=== PATIENT | female | born 1980 | race Hispanic/Latino ===

== ENCOUNTER 2017-08-27 11:54 | Inpatient (IN) | payer MEDICAID, OTHER, SELFPAY ==
[2017-08-27 12:48] VITALS: BMI 27.6
[2017-08-27 14:17] LABS: Amnisure Internal Control QC ACCEPTABLE (ACCEPTABLE); Amnisure Test RUPTURE DETECTED (No Rupture)
[2017-08-27] MEDS ORDERED: LR / Pitocin 40 units/1000 ml 1,000 ML IV PRN (14:34)
[2017-08-27] MEDS ORDERED: Lidocaine 1% (PF) 30 ML VIAL SC PRN (14:34)
[2017-08-27] MEDS ORDERED: Promethazine HCl 25 MG/ML VIAL IM PRN ×2 (14:35→20:51)
[2017-08-27] MEDS ORDERED: Ondansetron HCl/PF 4 MG/2 ML Vial IVP PRN ×3 (14:35→20:51)
[2017-08-27] MEDS: Lactated Ringer's 1,000 ML IV SCH ×4 (14:50→22:20)
[2017-08-27 15:18] LABS: Hemoglobin 13.1 g/dL (12.0-16.0); Mean Corpuscular HGB CONC 35.3 g/dL (32.0-36.0); Mean Corpuscular Hemoglobin 32.2 pg (27.0-31.0); Mean Corpuscular Volume 91.3 fl (81.0-99.0); Mean Platelet Volume 8.4 fL (7.4-10.4); Platelet Count 170 thou/uL (130-400); RBC Distribution Width 12.7 % (11.5-14.5); Red Blood Cell (RBC) Count 4.06 mill/uL (4.20-5.40); White Blood Cell (WBC) Count 9.3 thou/uL (4.8-10.8)
[2017-08-27] MEDS ORDERED: DISCONTINUE ALL PREVIOUS NARCOTICS FS SCH (15:30)
[2017-08-27] MEDS ORDERED: Bupivacaine 0.5% 20 ML, fentaNYL Citrate/PF 400 MCG in Sodium Chloride 0.9% 72 ML EPIDURAL SCH (15:30)
--- NOTE | 2017-08-27 15:33 | PDOC.LDHP ---
Labor and Delivery H&P Chief complaint: contractions HPI: Patient comes into L&D for contractions about 5 min apart which started at 0400 this morning. She says she has had a minimal clear secretions as well as minimal bleeding. She is feeling the contractions. No dysuria. No headache, N/V , sob, or swelling. She feels baby moving at least 3x per hour. Current gestational age (weeks): 40 Dating criteria: first trimester ultrasound Grav: 6 Para: 4 OB History Details: ,1,1,4 RODDY: 08/27/17 3 vaginal deliveries, largest being 10lbs Follows at [facility] with Dr. Green Last delivery was a C/S in July 2016 secondary to vasa previa at 36 wks Patient was referred to [facility] for evaluation of low-lying placenta, no changes to management per [facility] notes Current complications: none Abnormal US findings: No (low-lying posterior placenta) Current medications: pre-iris vitamins Previous surgical history: low tranverse CS Social history: none - Physical Exam Vital signs reviewed and normal: yes General: NAD Heart: RRR Lungs: nonlabored breathing Abdomen: NTTP Extremeties: normal range of motion FHT: category 1, variability present Orcutt contractions every: 2-6 min - Vaginal Exam cm dilated: 3 Effacement: 75% Station: -2 - OB Labs Blood type: A RH: positive Antibody Screen: negative HIV: negative RPR: negative HEPSAg: negative 1 hour GCT: positive 3 hour GTT: negative GBS: negative Urine drug screen: negative Rubella: non-immune - Assessment L&D Assessment: term patient in labor - Plan Plan: admit to L&D -: # Tolac - discussed risks/benefits with patient - patient elects for TOLAC - 3 cm at 1300, 7cm at 1700 melinda every 2-3 min - US confirms low lying placenta w/ no vasa previa - Type and Screen - GBS negative per yellow card - NPO except ice chips - Continuous monitoring - Anesthesia consulted for epidural - anticipate normal vaginal delivery <Fede Morris - Last Filed: 08/27/17 15:31> <Linda Lauren - Last Filed: 08/28/17 05:42> Allergies/Adverse Reactions: Allergies Allergy/AdvReac Type Severity Reaction Status Date / Time No Known Allergies Allergy Verified 07/16/16 19:54 Attending Addendum - Attending Addendum Date/Time: 08/28/17 0541 I personally evaluated the patient and discussed the management with Dr. Morris. I agree with the History, Examination, Assessment and Plan documented above with any addition or exceptions noted below. See my event note from 08/27 at 1536 for my complete h&P. <Linda Lauren - Last Filed: 08/28/17 05:42>
--- NOTE | 2017-08-27 15:45 | PDOC.EVN ---
Event Note - Event Note Event Note: Ms. Vazquez is a 37 y/o at 40 weeks gestation who presents with painful ctx. She has h/o 3 and last was a for vasa previa and 3rd trimester bleeding requiring 1` LTCS in July 2016. She has been seen as outpatient by dump truck driver off [place] and discussed r/b/a for TOLAC with short interval and recommended as ok to proceed. Also had low-lying placenta initially that resolved by today's ultrasound to fundal placenta. Cervix: initially 3/80/-2, repeat after ~1 hour was 7/90/-2 bulging bag. Ctx: q 2-3 minutes, painful FHT: baseline 150s, mod irma, + accels, no decels 1) IUP at 40 weeks who desires TOLAC- risks of uterine rupture, bleeding, and catastrophic distress discussed in detail with patient. Dr. Morris spoke in English and hotel services sales representative phone used earlier to ensure understanding. She gives informed consent for TOLAC. Good candidate as 75% liklihood of successful with calculator and good cervical change in a short period of time. Short interval, but double layer closure on LTCS. Sono today shows ~3500 gm . Patient desires epidural and will place as soon as labs return. 2) GBS neg.
[2017-08-27 15:48] LABS: HBSAg Index 0.16 S/CO (0-0.99); Hep B Surf Ag Non-Reactive S/CO (NonReactive)
[2017-08-27 15:59] LABS: Syphilis Antibody Nonreactive (Nonreactive); Syphilis Antibody Index 0.05 S/CO (<1.00 Non-Reactive)
--- NOTE | 2017-08-27 16:12 | ULT ---
LIMITED OBSTETRICAL ULTRASOUND: 08/27/2017 HISTORY: Evaluate placental location. History of placenta previa. TECHNIQUE: Multiplanar tijerina-scale sonographic imaging of the gravid uterus obtained. FINDINGS: A single intrauterine gestation is present, demonstrating a vertex presentation. The placenta is loc ated in the anterior fundus, with no evidence for placenta previa or abruption. Amniotic fluid index is approximately 10 cm. heart rate is 144 beats per minute. Bilateral hydroceles are incidentally noted. BIOMETRY: BPD: 9.4 cm (38 weeks 1 day) HC: 34.7 cm (40 weeks 1 day) AC: 34.7 cm (38 weeks 4 days) FL; 7.7 cm (39 weeks 2 days) AVERAGE BASED ON ULTRASOUND: 39 weeks 0 days. ESTIMATED WEIGHT: 3615 g, plus or minus 535 g. IMPRESSION: Single intrauterine gestation, as above. No evidence for placenta previa or abruption. POS: [facility]
[2017-08-27] MEDS ORDERED: CEFAZOLIN/Water 2 GM/20 ML SYRINGE ONE (16:40)
[2017-08-27] MEDS ORDERED: Bicitra 30 ML UDCUP ONE (16:40)
[2017-08-27] MEDS ORDERED: Morphine PF 1 MG/ML SYR ONE (17:21)
[2017-08-27 17:25] LABS: Actual Bicarbonate (HCO3a) 23.9 mEq/L (22-26); Base Excess (BEa) -3.5 mEq/L (0 (+/-) 2.5)
--- NOTE | 2017-08-27 17:34 | PDOC.EVN ---
Event Note - Event Note Event Note: Patient underwent epidural placement but was still having significant pain. I performed AROM with MSAF noted. Immediately after, heart tones were in the 70-90s over the next 5 minutes with ultimate recovery to baseline. She continued to have deep variable decels with each contraction. We discussed options of continued trial of labor vs repeat LTCS. Patient and agreed to proceed with . While we waited for anesthesia, we rechecked her cervix and she had an anterior lip and was 0 station. We attempted to push past the lip and Dr. Hassan was consulted for consideration of high outlet operative vaginal delivery. Patient was unable to push past this lip and was too high for operative vag delivery. When anesthesia arrived we took to OR for urgent LTCS. Heart tones were back to baseline at the time of the start of the case. Repeat LTCS via pfannensteil under general anesthesia. No obvious window or defect identified. low transverse hysterotomy performed. MSAF noted again. delivered and was vigorous and taken to warmer. Cord segment sent. Placenta sent to path. Weight 9# 3 oz and 8/9. Dr. Alcantara took over at the repair of the hysterotomy. See Dr. Rizzo dictation and Dr. Marr note for further details.
[2017-08-27] MEDS ORDERED: Fentanyl 100 MCG/2 ML VIAL ONE ×2 (17:39→20:15)
[2017-08-27] MEDS ORDERED: ePHEDrine/0.9% NaCl/PF SYRINGE 50 mg/10 ml ONE (17:53)
[2017-08-27] MEDS ORDERED: Oxytocin 10 UNITS/ML VIAL ONE ×2 (18:24→18:47)
[2017-08-27 18:31] LABS: Platelet Count 155 thou/uL (130-400)
[2017-08-27 18:33] LABS: Fibrinogen 427 mg/dL (253-463)
[2017-08-27 18:34] LABS: D-Dimer Test 3.98 *mcg/mL (0.27-0.43); INR-International Normal Ratio 1.2; PTT 32.1 SEC (22.9-36.1); Prothrombin Time 15.2 SEC (12.0-14.7)
[2017-08-27 18:53] LABS: FSP-Qualitative ABNORMAL (Normal); FSP-Semiquantitative >=20 & <40 mcg/mL (Less than 5)
[2017-08-27] MEDS ORDERED: CEFAZOLIN 1 GM VIAL ONE ×2 (19:23)
[2017-08-27] MEDS ORDERED: Azithromycin 500 MG in Sodium Chloride 0.9% 250 ML 250 ML IVPB SCH (19:30)
[2017-08-27] MEDS ORDERED: Glycopyrrolate 0.2 MG/ML 5 ML SYRINGE ONE (19:30)
[2017-08-27] MEDS ORDERED: NIFEdipine 10 MG CAP ONE (19:30)
[2017-08-27] MEDS ORDERED: Meperidine HCl/PF 25 MG/ML VIAL SLOW IVP PRN (20:13)
[2017-08-27] MEDS ORDERED: HYDROmorphone 2 MG/ML VIAL SLOW IVP PRN (20:13)
[2017-08-27] MEDS: Fentanyl 100 MCG/2 ML VIAL SLOW IVP PRN ×2 (20:20→20:50)
[2017-08-27] MEDS ORDERED: Fentanyl 5000 MCG/250 ML CADD IVPB PRN (20:51)
[2017-08-27] MEDS ORDERED: diphenhydrAMINE 25 MG CAP PO PRN (20:51)
[2017-08-27] MEDS ORDERED: diphenhydrAMINE 50 MG/ML VIAL IM PRN (20:51)
[2017-08-27] MEDS ORDERED: Naloxone HCl 0.4 mg/ml Vial IV PRN (20:51)
[2017-08-27] MEDS ORDERED: diphenhydrAMINE 50 MG/ML VIAL IVP PRN (20:51)
[2017-08-27] MEDS ORDERED: Zolpidem Tartrate 5 MG TAB PO PRN (20:51)
[2017-08-27] MEDS ORDERED: Communication Order-Pharmacy FS SCH (21:00)
[2017-08-27] MEDS ORDERED: fentaNYL Citrate/PF 2,000 MCG in Sodium Chloride 0.9% 60 ML IV PRN (21:15)
--- NOTE | 2017-08-27 21:19 | PDOC.EVN ---
Event Note - Event Note Event Note: Called by L&D at 4:50 about urgent C/S of TOLAC patient for non-reassuring heart tones, as I was Dr. Lauren replacement at 5 PM. I arrived as hysterotomy was being made by Dr. Rizzo under Dr. Lauren visualization. Possible uterine artery laceration was noted with a small extension on the right side which was closed with a locking stitch with good hemostasis as documented by Dr. Lauren. I replaced her as plastic tubing insulation supervisor at the mid-point of they hysterotomy repair. On inspection of the left apex, a small extension was noted. Extension was repaired and the hysterotomy closed in usual fashion with good hemostasis. A second embricating layer was placed in the horizontal fashion with good hemostasis. Uterus, tubes, and broad ligaments were inspected in front and back and found to be without rupture or hematoma. A small amount of bleeding was noted below the left apex of the hysterotomy but a source was not able to be identified. The bleeding was was identified as coming from the vesicouterine pouch with an entrance behind the bladder palpated , but specific source of bleeding was unable to be identified. At that time Dr. Hassan was called into the OR for assistance. The embricating layer was removed along with the left portion of the hysterotomy. The vesicouterine pouch was opened further, revealing more brisk bleeding without an obvious source. At this point, anesthesia noted that the patient was becoming tachycardic. 1500 mL of blood was identified. 2 packs of blood were called for , with transfusion of the first unit initiated on arrival. Dr. Webber was called by Dr. Hassan. The hysterotomy was from the vesicouterine space and closed with good hemostasis of the left apex. At this point, Dr. Webber arrived and assumed care for the case with Dr. Hassan. Please see Dr. Hassan's documentation for further details.
--- NOTE | 2017-08-27 22:24 | OP-2 ---
DATE OF SERVICE: 08/27/2017 RESIDENT SURGEON: Mendoza Rizzo MD DIRECTOR OF EXHIBIT DEVELOPMENT SURGEON: Fede Morris MD ATTENDING SURGEONS: Linda Lauren MD and Bridgette Alcantara DO CONSULTING SURGEONS: Cinthya Whalen DO and Bridgette Hassan MD PROCEDURE: Emergent repeat low transverse section. PREOPERATIVE DIAGNOSES: 1. Nonreassuring heart tones with bradycardia into the 70s recovered to 130s prior to induction of anesthesia. 2. Failed trial of labor after . POSTOPERATIVE DIAGNOSES: 1. Nonreassuring heart tones with bradycardia into the 70s recovered to 130s prior to induction of anesthesia. 2. Bilateral uterine extensions with right uterine artery laceration, status post repair with a 2 O'[place]ield stitches. 3. Severe intraoperative hemorrhage. 4. Suspected early disseminated intravascular coagulation - resolved. 5. Failed trial of labor after ANESTHESIA: General. INDICATIONS: The patient is a 37-year-old -1-1-4 at 40 weeks gestation who presented with painful contractions. She had a history of 3 prior vaginal deliveries and a approximately 13 months ago indicated for third trimester bleeding due to vasa previa. TOLAC was attempted and failed due to nonreassuring heart tones, maternal exhaustion, and maternal discomfort. Emergency was called for nonreassuring heart tones. PROCEDURE IN DETAIL: After risks, benefits, and alternatives were explained, the patient provided informed consent. Preoperative antibiotics of cefazolin 2 grams IV were given. The patient was taken to the operating room at 1702 hours and placed in the supine position with left lateral tilt. She was prepped and draped in the usual sterile fashion. At this time, general anesthesia was achieved and endotracheal intubation was performed by Anesthesiology. Pfannenstiel incision was made at 1708 hours with a scalpel and carried down to level of the fascia which was nicked sharply. The fascia was cut and extended bilaterally with Vazquez scissors. The inferior and superior fascia were elevated with Chey clamps and the rectus muscles were sharply and bluntly dissected free. The recti were divided digitally and retracted manually. Peritoneum was entered bluntly and retracted manually. Bladder blade was placed. Bladder flap was created with Metzenbaum scissors. Low transverse score was made with a scalpel and the uterus was entered in the midline. A thick meconium-stained fluid was noted. Hysterotomy was extended manually. The infant was noted to be vertex and delivered easily with fundal pressure. The head of the infant was noted to be at the pelvic inlet. Mouth and nares were bulb suctioned. Cord was cut and clamped and grossly normal male who was handed to the awaiting neonatology team. Cord gas segment was taken due to the nonreassuring heart tones. Cord gas pH at time of delivery was 7.28. Cord blood was then obtained. The placenta was delivered with fundal massage. The uterus was then externalized. At this time, bilateral hysterotomy extensions were noted. Pulsatile bleeding was noted on the right edge of the hysterotomy. This resolve with placement of a ring forceps. The apex and bleeding artery were incorporated into the hysterotomy closure. It was then closed in the running- locking fashion using #1 Vicryl. An imbricating layer was then made using a second #1 Vicryl in the running-nonlocking fashion. The uterus was anteverted and pouch of Satnam was noted to be free of clots. The uterus was retroverted and the hysterotomy was inspected again. It was noted to be hemostatic at this time. The uterus was then internalized and the hysterotomy was visualized again. At this time, bleeding was noted along the left edge of the hysterotomy. Digital exploration of the hysterotomy revealed potential space within the imbricated layer. At this time, Dr. Hassan from [facility] was called in to assist. Ten units of intrauterine pitocin were given at this time. The left apex of the hysterotomy was grasped with an Allis clamp and two figure-of-8 sutures were placed. When this did not control the bleeding , Dr. Hassan called for assistance from Dr. Whalen. While waiting for Dr. Whalen to arrive, the imbricating layer and hysterotomy were reopened. At the time, Dr. Whalen arrived, the imbricating layer had been taken down and the hysterotomy partially opened. The lower segment was visualized, but no obvious source of bleeding could be found. Dr. Whalen and Dr. Hassan further inspected the right aspect of the hysterotomy and found pulsatile bleeding once the initial hysterotomy closure was taken down. It was believe that this was the lacerated right uterine artery. At this time, the massive transfusion protocol was initiated. The patient already had 2 units of packed red blood cells ordered, but was experiencing hypotension, tachycardia, and hypothermia. The right uterine artery was ligated using 2 O'[place]ield stitches. Hysterotomy was then reclosed using 0 Monocryl in the running-locking fashion. One figure-of- eight stitch was needed along the lower uterine segment to control bleeding. The hysterotomy was noted to be hemostatic along the incision, but several areas of venous bleeding were noted along the lower segment. Results from the coagulopathy panel had returned and were concerning for early DIC. Bovie cautery and FloSeal were used to control the areas of venous bleeding. Uterus was then re-internalized and the hysterotomy was inspected. It was noted to be hemostatic at this time. The fascial layer was closed using 0 PDS in the running-nonlocking fashion. Subcutaneous skin was closed using #2 plain gut in the running-nonlocking fashion. Skin was reapproximated with morteza. Vital signs at the end of the procedure were stable. The patient was taken to the recovery room in stable condition. Sponge, needle, and instrument counts were correct x3. ESTIMATED BLOOD LOSS: 3000 mL. BLOOD PRODUCTS GIVEN INTRAOPERATIVELY: Four units of packed red blood cells, 2 units of fresh-frozen plasma, and one 6-pack of platelets. FLUID DURING PROCEDURE: 3 liters crystalloid. ADDITIONAL MEDICATIONS GIVEN DURING PROCEDURE: Patient received 120 units of IV Pitocin and 10 units intrauterine Pitocin. URINE OUTPUT: 800 mL. Prior to the start of the procedure, trace amount of blood was noted in the Rodriguez bag. Urine in the Rodriguez tubing throughout the entire procedure was clear. There was no concern for injury to the bladder. FINDINGS: Grossly normal male infant with Apgars of 8 and 9 at 1 and 5 minutes respectively. Grossly normal placenta with three-vessel cord, sent to pathology. DRAINS: Rodriguez to gravity with clear urine draining. For additional details, see doctors Leonidas', Quinton's, Mo's, and Marlee's notes for their specific contributions to this procedure. [facility] HOSPITALShannon
[2017-08-28] MEDS ORDERED: HYDROcodone/Acetaminophen 10/325 mg Tablet PO PRN (00:30)
[2017-08-28] MEDS ORDERED: Lidocaine 2% MPF 10 ML AMP (For Epidural Use) ONE (00:30)
[2017-08-28] MEDS ORDERED: Morphine PF 1 MG/ML SYR IVP PRN (00:30)
[2017-08-28] MEDS: Benzonatate 100 MG CAP PO PRN ×3 (01:14→21:55)
[2017-08-28 01:42] LABS: Hemoglobin 11.4 g/dL (12.0-16.0); Mean Corpuscular HGB CONC 35.5 g/dL (32.0-36.0); Mean Corpuscular Hemoglobin 31.4 pg (27.0-31.0); Mean Corpuscular Volume 88.4 fl (81.0-99.0); Mean Platelet Volume 7.5 fL (7.4-10.4); Platelet Count 147 thou/uL (130-400); Red Blood Cell (RBC) Count 3.63 mill/uL (4.20-5.40); White Blood Cell (WBC) Count 12.3 thou/uL (4.8-10.8)
--- NOTE | 2017-08-28 01:56 | PDOC.EVN ---
Event Note - Event Note Event Note: Post Operative Note S: Patient states she is sore. She is resting in her bed. O: Vitals: Mild tachycardia to 105. otherwise WNL Gen: NAD CV: RRR, no murmurs Resp: CTA-bilaterally Abdomen: Tender to palpation. Surgical site bandaged Extremity: No edema or erythema A/P: 1. TOLAC converted to , delivered - Continue Routine care - H & H 11.4 & 32.1 2. Hemorrhage - s/p transfusion - H & H 11.4 & 32.1 - Continue to monitor for signs and symptoms of bleeding Disposition: Stable, will continue current plan of care.
[2017-08-28 05:23] LABS: Hemoglobin 11.5 g/dL (12.0-16.0); Mean Corpuscular HGB CONC 35.2 g/dL (32.0-36.0); Mean Corpuscular Hemoglobin 31.1 pg (27.0-31.0); Mean Corpuscular Volume 88.5 fl (81.0-99.0); Mean Platelet Volume 7.4 fL (7.4-10.4); Platelet Count 145 thou/uL (130-400); Red Blood Cell (RBC) Count 3.69 mill/uL (4.20-5.40); White Blood Cell (WBC) Count 11.6 thou/uL (4.8-10.8)
[2017-08-28 05:37] LABS: INR-International Normal Ratio 1.1; Prothrombin Time 14.6 SEC (12.0-14.7)
[2017-08-28] MEDS: Lactated Ringer's 1,000 ML IV SCH ×3 (05:42→22:56)
--- NOTE | 2017-08-28 06:18 | PDOC.PP ---
Post Progress Note Post Day #: 1 Subjective: Doing well. Complains only of a sore throat and dry cough. No events overnight. Bleeding wnl. Vital Signs (12 hours) Temp Pulse Resp BP 08/28/17 04:00 98.6 F 73 18 08/28/17 02:15 98.3 F 77 18 128/67 08/28/17 01:15 98.5 F 72 18 116/61 08/28/17 00:15 98.1 F 77 20 119/62 08/27/17 20:00 97.7 F 105 H 20 Weight Weight 146 lb - Physical Examination General: NAD Respiratory: non-labored breathing Abdominal: lochia (normal), no distention, appropriately TTP (soft, no guarding or rebound.) Fundus firm & at: U-2 Skin: CS incision dry & intact, no rash Neurological: no gross focal deficits Psychiatric: A&Ox3, normal affect Result Diagrams: 08/28/17 05:10 Additional Labs: Post Labs Blood Type A POSITIVE 08/27/17 15:11 Hep Bs Antigen Non-Reactive S/CO (NonReactive) 08/27/17 15:11 (1) hemorrhage Code(s): O72.1 - OTHER IMMEDIATE HEMORRHAGE Status: Acute (2) Transfusion of blood during current hospitalization Code(s): [id number] - Status: Acute (3) Failed trial of labor following previous , delivered Code(s): O66.41 - FAILED ATTEMPT VAGINAL AFTER PREVIOUS DEL Status: Acute - Assessment/Plan H/H pending for this morning. Stable exam. Continue to monitor.
[2017-08-28] MEDS: Ferrous Sulfate 325 MG TAB PO SCH ×3 (07:44→17:26)
--- NOTE | 2017-08-28 08:14 | PDOC.PP ---
Post Progress Note Post Day #: 1 Subjective: 37 yo F s/p repeat c section after failed TOLAC complicated by PPH with EBL of 3L. Pt got 4u PRBC, 2 FFP, 1 Plt. Today pt states that she if generally feeling well, however complains of abd pain with motion and sore throat. She denies symptoms of anemia/hypovolemia such as dizziness, n/v, headache, feeling weak. Otherwise pt is doing well. She denies breast pain/tenderness, chest pain/sob, fever. She has not had a bm and is not passing gas. PO intake tolerated: yes Flatus: no Ambulation: no Vital Signs (12 hours) Temp Pulse Resp BP 08/28/17 04:00 98.6 F 73 18 08/28/17 02:15 98.3 F 77 18 128/67 08/28/17 01:15 98.5 F 72 18 116/61 08/28/17 00:15 98.1 F 77 20 119/62 Weight Weight 66.224 kg - Physical Examination General: NAD Cardiovascular: no m/r/g, RRR Respiratory: clear to auscultation bilaterally Abdominal: + bowel sounds, no distention, appropriately TTP Fundus firm & at: Umbilicus Extremities: negative homans (B) Skin: CS incision dry & intact Neurological: no gross focal deficits Psychiatric: A&Ox3, normal affect Result Diagrams: 08/28/17 05:10 Additional Labs: Post Labs Blood Type A POSITIVE 08/27/17 15:11 Hep Bs Antigen Non-Reactive S/CO (NonReactive) 08/27/17 15:11 (1) Failed trial of labor following previous , delivered Code(s): O66.41 - FAILED ATTEMPT VAGINAL AFTER PREVIOUS DEL Status: Acute (2) hemorrhage Code(s): O72.1 - OTHER IMMEDIATE HEMORRHAGE Status: Acute (3) Transfusion of blood during current hospitalization Code(s): [id number] - Status: Acute - Assessment/Plan Repeat c section after failed TOLAC, delivered - Doing well this morning, routine post op care - [place]/Motrin for pain control - encourage ambulation today - [place] to bottle feed only PPH - s/p massive transfusion protocol. 4u PRBC, 2 FFP, 1 plt - hb stable, vitals normal - No blood per vagina - monitor CBC in am Dispo: Pt stable and doing well. Continue to monitor volume status, continue routine post care. <Kyree Willis - Last Filed: 08/28/17 08:03> Vital Signs (12 hours) Temp Pulse Resp BP 08/28/17 17:42 98.7 F 81 18 110/60 08/28/17 16:00 98.8 F 80 18 08/28/17 12:45 98.8 F 80 18 107/58 L 08/28/17 12:00 98.8 F 80 18 Weight Weight 66.224 kg Result Diagrams: 08/28/17 05:10 Additional Labs: Post Labs Blood Type A POSITIVE 08/27/17 15:11 Hep Bs Antigen Non-Reactive S/CO (NonReactive) 08/27/17 15:11 <Karla Mirza - Last Filed: 08/28/17 20:40> Attending Addendum - Attending Addendum Date/Time: 08/28/172033 I personally evaluated the patient and discussed the management with Dr. Willis and Dr. Wallace I agree with the History, Examination, Assessment and Plan documented above with any addition or exceptions noted below. 37 yo female s/p RLTCS 2/2 NRFHT complicated by PPH Patient doing well today. Reports fatigue. Trouble sleeping last night. Denies CP, SOB, and palpitations. No ambulating yet. Pain to abdomen but controlled with medications. Lochia appropriate. VS reviewed. Labs reviewed. NAD, fatigue appearing. RRR. No murmurs. CTA bilaterally. Abdomen soft and mildly distended. BS present. Incision with morteza. Healing. Uterus firm below umbilicus. Tender to palpation to abdomen but appropriate. 1. PPD/POD#1: Doing well. Continue routine pp care. 2. s/p RLTCS: Start bowel prep due to narcotics. Monitor BM and pain management. Encourage ambulation. 3. PPH s/p massive transfusion: H&H stable. Coags stable. Monitor for symptoms. 4. Bottle feeding 5. Contraception: To discuss tomorrow. Continue routine care. Likely d/c in 72 hours. ABrayMD <Karla Mirza - Last Filed: 08/28/17 20:40>
[2017-08-28] MEDS: Cepastat Lozenges 1 LOZ PO PRN ×5 (08:29→19:44)
[2017-08-28] MEDS ORDERED: Adacel (T-DAP) 0.5 ML VIAL IM ONE (09:00)
--- NOTE | 2017-08-28 09:38 | ADD-OP ---
ADDENDUM DATE OF PROCEDURE: 08/27/2017 I was called to the operating room for an intraoperative consult by Dr. Bridgette Alcantara of the [facility]. The patient had undergone an emergent repeat low transverse for heart rate abnormality during a trial of labor. Following delivery, the hysterotomy was reported to have bilateral extensions, which were repaired by Dr. Linda Lauren and Dr. Alcantara. After reapproximation of the hysterotomy, they noted welling up of fresh blood in the left gutter and called me for consultation. At the time of my consultation, the patient was noted to have approximately 3881-4658 mL of blood loss. Replacement blood products were called for. I examined the hysterotomy and noted a large space at the left apex extending down inferiorly. I opened the hysterotomy to better evaluate and the patient continued to bleed heavily from inferior to the hysterotomy. At that time, I called Dr. Cinthya Whalen to come in and assist me in case we would need to perform a hysterectomy. We opened the inferior serosa and bladder flap and found that there was a large arterial bleed from the right uterine artery. At that time, the massive transfusion protocol was activated. We then placed an [place] stitch around the bleeding uterine artery with good hemostasis. The hysterotomy was then closed in a running locked fashion with #1 Monocryl. There were multiple areas of bleeding inferior to the incision and this area was incorporated in an imbricating stitch. There were multiple other areas of oozing. FloSeal was then applied to these areas with good hemostasis. The uterus was returned to the abdomen. The hysterotomy was observed and good hemostasis was noted. The fascia was closed in a running fashion with 0 PDS. The subcutaneous fat was reapproximated with 2-0 plain gut. The skin was closed with morteza and a pressure dressing was applied. Sponge, lap, and needle counts were correct x2 and the patient was taken to the recovery room in stable condition. The patient received 4 units of packed red blood cells, 2 units of FFP, and one six-pack of platelets intraoperatively. Please see the note by Dr. Linda Lauren and Dr. Alcantara for remaining details. Final EBL was approximately 3000 mL. MTDD
[2017-08-28] MEDS ORDERED: HYDROcodone/Acetaminophen 5/325 mg Tablet PO PRN ×2 (12:10)
[2017-08-28] MEDS ORDERED: Fentanyl 100 MCG/2 ML VIAL SLOW IVP PRN (12:11)
[2017-08-28] MEDS: Ibuprofen 800 MG TAB PO PRN ×2 (14:21→21:55)
[2017-08-28] MEDS: Simethicone Chewable 80 MG TAB PO PRN (21:54)
[2017-08-29 05:37] LABS: #Eosinphils 0.1 thou/uL (0.0-0.7); #Lymphocytes 1.9 thou/uL (1.20-3.40); #Monocytes 0.6 thou/uL (0.11-0.59); #Neutrophils 10.9 thou/uL (1.40-6.50); %Basophils 0.1 % (0.0-1.0); %Eosinophils 0.8 % (0.0-10.0); %Lymphocytes 14.1 % (21.0-51.0); %Monocytes 4.1 % (0.0-10.0); Hemoglobin 9.9 g/dL (12.0-16.0); Mean Corpuscular HGB CONC 34.3 g/dL (32.0-36.0); Mean Corpuscular Hemoglobin 30.6 pg (27.0-31.0); Mean Corpuscular Volume 89.4 fl (81.0-99.0); Mean Platelet Volume 7.1 fL (7.4-10.4); Platelet Count 152 thou/uL (130-400); RBC Distribution Width 13.1 % (11.5-14.5); Red Blood Cell (RBC) Count 3.23 mill/uL (4.20-5.40); White Blood Cell (WBC) Count 13.5 thou/uL (4.8-10.8)
[2017-08-29] MEDS: Ibuprofen 800 MG TAB PO PRN (06:08)
[2017-08-29] MEDS: Simethicone Chewable 80 MG TAB PO PRN ×2 (06:09→13:24)
--- NOTE | 2017-08-29 08:08 | PDOC.PP ---
Post Progress Note Post Day #: 2 Subjective: 37 yo s/p repeat c section following failed TOLAC complicated by PPH of 3L and s/p 4u PRBC, 2 FFP, 1 plt. Pt states that her pain is still significant, but improved. She denies fever/chills, nausea, SOB, chest pain. She is passing gas, ambulating, and urinating without problem. There were no acute events over night PO intake tolerated: yes Flatus: yes Ambulation: yes Vital Signs (12 hours) Temp Pulse Resp BP Pulse Ox 08/29/17 04:10 98.8 F 64 16 130/64 96 08/29/17 00:00 98.1 F 76 16 107/57 L 93 L Weight Weight 66.224 kg - Physical Examination General: NAD Cardiovascular: no m/r/g, RRR Respiratory: clear to auscultation bilaterally, non-labored breathing Abdominal: + bowel sounds, lochia (scant bleeding) Deviation from normal: Abdomen is quite tender in LLQ Fundus firm & at: umbilicus Extremities: negative homans (B) Skin: no rash Deviation from normal: Incision well approximated with clear drainage from the R third Neurological: no gross focal deficits Psychiatric: A&Ox3, normal affect Result Diagrams: 08/29/17 05:04 Additional Labs: Post Labs Blood Type A POSITIVE 08/27/17 15:11 Hep Bs Antigen Non-Reactive S/CO (NonReactive) 08/27/17 15:11 (1) Failed trial of labor following previous , delivered Code(s): O66.41 - FAILED ATTEMPT VAGINAL AFTER PREVIOUS DEL Status: Acute (2) hemorrhage Code(s): O72.1 - OTHER IMMEDIATE HEMORRHAGE Status: Acute (3) Transfusion of blood during current hospitalization Code(s): ABL0208 - Status: Acute - Assessment/Plan Repeat c section after failed TOLAC, delivered - Doing well this morning, routine post op care - [place]/Motrin for pain control. Will schedule motrin today for better control - Drainage from wound appears to be serosanguinous and not purulent. Pts vital signs are all WNL and elevated WBC is to be expected post surgery w/ transfusion. Continue to monitor white count and vitals - continue frequent ambulation PPH - s/p massive transfusion protocol. 4u PRBC, 2 FFP, 1 plt - hb dropped to 9.9 today. Pt does not appear to be actively bleeding. Vitals are normal. - No blood per vagina - monitor CBC in am Dispo: Pt stable. Continue to monitor volume status, currently low concern for continued bleeding or infection. Continue routine post care. <Kyree Willis - Last Filed: 08/29/17 12:06> Vital Signs (12 hours) Temp Pulse Resp BP Pulse Ox 08/29/17 08:00 99.2 F 73 16 125/61 95 08/29/17 04:10 98.8 F 64 16 130/64 96 Weight Weight 66.224 kg Result Diagrams: 08/29/17 05:04 Additional Labs: Post Labs Blood Type A POSITIVE 08/27/17 15:11 Hep Bs Antigen Non-Reactive S/CO (NonReactive) 08/27/17 15:11 <Celestine Willams - Last Filed: 08/29/17 12:11> Attending Addendum - Attending Addendum Date/Time: 08/29/17 1209 I personally evaluated the patient and discussed the management with Dr. Willis. I agree with the History, Examination, Assessment and Plan documented above with any addition or exceptions noted below. Wound is clean dry adn intact without surrounding edema or erythema. Fundus at umbilicus. Abdomen is soft with only focal mild tenderness of the uterus itself. No rebound. <Celestine Willams - Last Filed: 08/29/17 12:11>
[2017-08-29] MEDS: Ibuprofen 800 MG TAB PO SCH ×2 (09:00→17:33)
[2017-08-29] MEDS: Cepastat Lozenges 1 LOZ PO PRN (09:04)
[2017-08-29] MEDS: Ferrous Sulfate 325 MG TAB PO SCH ×2 (09:04→17:32)
[2017-08-29] MEDS ORDERED: Docusate 100 MG CAP PO PRN (09:45)
[2017-08-29 21:09] VITALS: TEMP 99.1
[2017-08-30] MEDS: Ibuprofen 800 MG TAB PO SCH ×2 (00:47→07:49)
[2017-08-30 06:01] LABS: #Eosinphils 0.2 thou/uL (0.0-0.7); #Lymphocytes 2.2 thou/uL (1.20-3.40); #Monocytes 0.5 thou/uL (0.11-0.59); #Neutrophils 7.1 thou/uL (1.40-6.50); %Basophils 0.2 % (0.0-1.0); %Lymphocytes 21.9 % (21.0-51.0); %Monocytes 4.8 % (0.0-10.0); %Neutrophils 71.2 % (42.0-75.0); Hemoglobin 9.8 g/dL (12.0-16.0); Mean Corpuscular HGB CONC 34.1 g/dL (32.0-36.0); Mean Corpuscular Hemoglobin 30.6 pg (27.0-31.0); Mean Corpuscular Volume 89.5 fl (81.0-99.0); Mean Platelet Volume 7.2 fL (7.4-10.4); Platelet Count 181 thou/uL (130-400); RBC Distribution Width 12.9 % (11.5-14.5)
[2017-08-30] MEDS: Ferrous Sulfate 325 MG TAB PO SCH (07:49)
[2017-08-30 08:11] VITALS: BP 125/74
--- NOTE | 2017-08-30 08:12 | PDOC.PP ---
Post Progress Note Post Day #: 3 Subjective: 37 yo s/p repeat c section following failed TOLAC complicated by PPH of 3L and s/p 4u PRBC, 2 FFP, 1 plt. Today states that she is in very little pain. She denies dizziness, weakness, SOB, chest pain, difficulty with ambulation, or fever. She has very little vaginal bleeding, is voiding without problem, and had a BM yesterday. PO intake tolerated: yes Flatus: yes Ambulation: yes Vital Signs (12 hours) Temp Pulse Resp BP Pulse Ox 08/30/17 08:00 99.1 F 73 18 08/30/17 07:45 98 F 66 18 125/74 99 Weight Weight 66.224 kg - Physical Examination General: NAD Cardiovascular: no m/r/g, RRR Respiratory: clear to auscultation bilaterally Abdominal: + bowel sounds, no distention, appropriately TTP Extremities: negative homans (B) Skin: CS incision dry & intact Neurological: no gross focal deficits Psychiatric: A&Ox3 Result Diagrams: 08/30/17 05:14 Additional Labs: Post Labs Blood Type A POSITIVE 08/27/17 15:11 Hep Bs Antigen Non-Reactive S/CO (NonReactive) 08/27/17 15:11 (1) Failed trial of labor following previous , delivered Code(s): O66.41 - FAILED ATTEMPT VAGINAL AFTER PREVIOUS DEL Status: Acute (2) hemorrhage Code(s): O72.1 - OTHER IMMEDIATE HEMORRHAGE Status: Acute (3) Transfusion of blood during current hospitalization Code(s): AAU8977 - Status: Acute - Assessment/Plan Repeat c section after failed TOLAC, delivered - Doing well this morning, routine post op care - She has not needed opiates for 2 days, pain well controlled with scheduled Motrin - Vitals normal, Hb stable. No concern for continued bleed or infection - continue frequent ambulation PPH - s/p massive transfusion protocol. 4u PRBC, 2 FFP, 1 plt - hb stable today - No blood per vagina Dispo: Pt stable. Pt ready for dc today <Kyree Willis - Last Filed: 08/30/17 08:11> Vital Signs (12 hours) Temp Pulse Resp BP Pulse Ox 08/30/17 08:00 99.1 F 73 18 08/30/17 07:45 98 F 66 18 125/74 99 Weight Weight 66.224 kg Result Diagrams: 08/30/17 05:14 Additional Labs: Post Labs Blood Type A POSITIVE 08/27/17 15:11 Hep Bs Antigen Non-Reactive S/CO (NonReactive) 08/27/17 15:11 <Celestine Willams - Last Filed: 08/30/17 11:36> Attending Addendum - Attending Addendum Date/Time: 08/30/17 9835 I personally evaluated the patient and discussed the management with Dr. Willis. I agree with the History, Examination, Assessment and Plan documented above with any addition or exceptions noted below. Patient is stable for discharge. <Celestine Willams - Last Filed: 08/30/17 11:36>
== END 2017-08-30 14:39 | disposition home or self-care (01) | DRG 765 ==
LOC: L&D/OP 11:54 → L&D 15:06 → 3SW 08-28 00:27 → 3SE 08-29 06:52
PROVIDERS: ADMIT Family Medicine; ATTEND Family Medicine
PROC: 10D00Z1 Extraction of Products of Conception, Low, Open Approach (ICD-10-PCS; principal; 2017-08-27)
PROC: 04LY0ZZ Occlusion of Lower Artery, Open Approach (ICD-10-PCS; 2017-08-27)
PROC: 30233N1 Transfusion of Nonautologous Red Blood Cells into Peripheral Vein, Percutaneous Approach (ICD-10-PCS; 2017-08-27)
PROC: 30233K1 Transfusion of Nonautologous Frozen Plasma into Peripheral Vein, Percutaneous Approach (ICD-10-PCS; 2017-08-27)
DX: O44.43 Low lying placenta NOS or without hemorrhage, third trimester (principal); D65 Disseminated intravascular coagulation [defibrination syndrome]; O34.211 Maternal care for low transverse scar from previous cesarean delivery; O76 Abnormality in fetal heart rate and rhythm complicating labor and delivery; O71.81 Laceration of uterus, not elsewhere classified; O71.89 Other specified obstetric trauma; Z3A.40 40 weeks gestation of pregnancy; Z37.0 Single live birth
CPT/HCPCS: 36415; 36430; 51702; 76815; 82805; 84112; 85025; 85027; 85049; 85300; 85362; 85379; 85384; 85610; 85730; 86780; 86850; 86900; 86901; 87340; 88307; 99285; J0456; J0690; J2001; J2274; J2590; J3010; J3490; J7050; P9016; P9035; P9059